=== PATIENT | female | born 1975 | race Hispanic/Latino ===

== ENCOUNTER 2018-07-27 10:20 | Emergency (ER) | payer SELFPAY ==
[~2018-07-27] VITALS: Ht 162.6 cm; Wt 72.0 kg
[2018-07-27] MEDS ORDERED: VOLTAREN75 MG PO (12:24)
[2018-07-27 12:34] VITALS: BP 124/84
== END 2018-07-27 12:34 | disposition home or self-care (01) | DRG 558 ==
LOC: ED 10:20
DX: M77.52 Other enthesopathy of left foot and ankle (principal)